=== PATIENT | male | born 1985 | race Caucasian/White ===

== ENCOUNTER 2024-01-13 00:52 | Inpatient (IN) ==
[2024-01-13 01:37] LABS: INR 1.25 (0.83-1.13)
[2024-01-13 01:47] LABS: Hematocrit 31.3 % (38-53); Hemoglobin 10.7 g/dL (13.2-16.3); Mean Corpuscular Hemoglobin 27.3 pg (27-33); Mean Corpuscular Hgb Conc 34.1 g/dL (31-36); Red Blood Count 3.92 10^6/uL (4.06-5.63); Red Cell Distribution Width 14.9 % (12-17); White Blood Count 3.5 10^3/uL (3.6-10.2)
[2024-01-13 01:57] LABS: Calcium 9.5 mg/dL (8.6-10.3); Creatinine, Serum 1.92 mg/dL (0.67-1.17); Globulin 3.9 g/dL (2-4); Potassium 3.5 mmol/L (3.5-5.0); Total Bilirubin 0.6 mg/dL (0.2-1.0); Total Protein 7.9 g/dL (6.4-8.9); eGFR CKD-EPI 45.2 (>60)
[2024-01-13 02:37] LABS: ABS Eosinophils 0.1 10^3/uL (0.0-0.5); ABS Lymphocytes 0.3 10^3/uL (1.0-4.8); ABS Monocytes 0.7 10^3/uL (0.0-1.1); ABS Neutrophils 2.5 10^3/uL (1.5-7.6); Eosinophil % 1.4 %; Lymphocyte % 7.4 %
[2024-01-13 02:38] LABS: Mean Platelet Volume 8.6 fL (7.5-11.2); Platelet Count 179 10^3/uL (150-450); RBC Morphology Normal (Normal)
[2024-01-13] MEDS: Morphine 4 MG/ML VIAL (1 ml) IV ONE ×2 (04:13→06:18)
[2024-01-13] MEDS: Ondansetron 4 mg VIAL 2 MG/ML 2 ml VIAL IV ONE (04:13)
[2024-01-13] MEDS: Lactated Ringers 1000 ml BAG 1,000 ML IV ONE (04:13)
[2024-01-13 04:53] LABS: High Sensitivity Troponin 1 Hr 7 pg/mL (<20)
[2024-01-13] MEDS: Iodixanol (CONTRAST) 320 MG/ML 100 ML SDV IV ONE (05:36)
[2024-01-13 07:25] LABS: Urine Appearance Clear; Urine Bacteria Absent /HPF (Absent); Urine Bilirubin Negative (Negative); Urine Blood Trace (Negative); Urine Color Yellow; Urine Glucose Negative (Negative); Urine Ketones Trace (Negative); Urine Nitrite Negative (Negative); Urine Protein 1+ (>=30 mg/dL) (Negative); Urine Red Blood Cell Absent /HPF (0-Trace); Urine Specific Gravity >1.050 (1.002-1.030); Urine Squamous Epithelial Cell Present /HPF (Absent); Urine Urobilinogen Negative (Negative); Urine White Blood Cell Absent /HPF (0-Trace)
[2024-01-13 07:52] LABS: C Reactive Protein 184.51 mg/L (<8.01)
[2024-01-13] MEDS: Vancomycin 1,250 MG in NS 0.9% 250 ml 250 ML IVPB ONE (07:52)
[2024-01-13] MEDS ORDERED: Vancomycin per Pharmacy 1 EA NOTE FOLLOW UP SCH (08:00)
[2024-01-13] MEDS ORDERED: Piperacillin/Tazobac 3.375 BAG 3.375 GM/100 ML BAG IV SCH ×2 (08:00→11:00)
[2024-01-13] MEDS: NS 0.9% 1000 ml BAG 1,000 ML IV ONE (09:36)
[2024-01-13] MEDS: Pantoprazole VIAL 40 MG VIAL IV SCH (11:56)
[2024-01-13] MEDS: Piperacillin/Tazobac 3.375 BAG 3.375 GM/100 ML BAG IV SCH (11:57)
[2024-01-13] MEDS: Heparin 5000 UNITS/ML 1 mL VIAL SUBCUT SCH (14:37)
[2024-01-13 18:04] LABS: Magnesium 1.3 mg/dL (1.9-2.7)
[2024-01-13] MEDS: Fluconazole 400 MG IVPREMIX 400 MG/200 ML BAG IVPB ONE (19:05)
[2024-01-13] MEDS: Magnesium Sulfate 2 gm BAG 2 GM/50 ML BAG IVPB ONE ×2 (20:12→21:33)
[2024-01-13] MEDS: Potassium Chloride LIQUID 20 MEQ/15 ML LIQUID PO ONE (21:33)
[2024-01-14] MEDS: Fluconazole 200 MG IVPREMIX 200 MG/100 ML BAG IVPB SCH (08:36)
[2024-01-14 11:21] LABS: Hematocrit 26.1 % (38-53); Mean Corpuscular Hemoglobin 27.4 pg (27-33); Mean Corpuscular Hgb Conc 34.5 g/dL (31-36); Mean Corpuscular Volume 79.4 fL (80-97); Mean Platelet Volume 8.3 fL (7.5-11.2); Platelet Count 156 10^3/uL (150-450); Red Blood Count 3.29 10^6/uL (4.06-5.63); Red Cell Distribution Width 14.9 % (12-17)
[2024-01-14 11:49] LABS: Calcium 8.6 mg/dL (8.6-10.3); Creatinine, Serum 1.06 mg/dL (0.67-1.17); Vancomycin Random 2.8 mcg/mL; eGFR CKD-EPI 92.1 (>60)
[2024-01-14 12:06] LABS: ABS Eosinophils 0.2 10^3/uL (0.0-0.5); ABS Lymphocytes 0.2 10^3/uL (1.0-4.8); ABS Monocytes 0.7 10^3/uL (0.0-1.1); Eosinophil % 5.3 %; Hypochromasia 1+; Lymphocyte % 7.2 %; Microcytosis 1+
[2024-01-14] MEDS: Vancomycin Random Level NOTE FOLLOW UP ONE (13:19)
[2024-01-14] MEDS: Vancomycin 1,250 MG in NS 0.9% 250 ml 250 ML IVPB SCH (14:19)
[2024-01-15 08:14] LABS: Hematocrit 27.9 % (38-53); Hemoglobin 9.3 g/dL (13.2-16.3); Mean Corpuscular Hemoglobin 27.5 pg (27-33); Mean Corpuscular Hgb Conc 33.4 g/dL (31-36); Mean Corpuscular Volume 82.4 fL (80-97); Mean Platelet Volume 8.5 fL (7.5-11.2); Platelet Count 153 10^3/uL (150-450); Red Blood Count 3.39 10^6/uL (4.06-5.63); Red Cell Distribution Width 15.5 % (12-17); White Blood Count 2.3 10^3/uL (3.6-10.2)
[2024-01-15 08:29] LABS: ABS Eosinophils 0.4 10^3/uL (0.0-0.5); ABS Lymphocytes 0.3 10^3/uL (1.0-4.8); ABS Monocytes 0.5 10^3/uL (0.0-1.1); ABS Neutrophils 1.2 10^3/uL (1.5-7.6); Anisocytosis 1+; Burr Cells 2+; Eosinophil % 16.1 %; Lymphocyte % 11.7 %; Nucleated Red Blood Cells % 0.1 %/100WBC (0.0-0.8)
[2024-01-15 08:30] LABS: Calcium 8.4 mg/dL (8.6-10.3); Globulin 3.1 g/dL (2-4); Potassium 4.2 mmol/L (3.5-5.0); Total Bilirubin 0.5 mg/dL (0.2-1.0); Total Protein 6.1 g/dL (6.4-8.9); eGFR CKD-EPI 98.8 (>60)
[2024-01-16 06:43] LABS: Hematocrit 27.3 % (38-53); Hemoglobin 9.5 g/dL (13.2-16.3); Mean Corpuscular Hemoglobin 27.5 pg (27-33); Mean Corpuscular Hgb Conc 34.8 g/dL (31-36); Mean Corpuscular Volume 79.1 fL (80-97); Mean Platelet Volume 8.4 fL (7.5-11.2); Platelet Count 200 10^3/uL (150-450); Red Blood Count 3.46 10^6/uL (4.06-5.63); White Blood Count 2.4 10^3/uL (3.6-10.2)
[2024-01-16 08:14] LABS: ABS Eosinophils 0.6 10^3/uL (0.0-0.5); ABS Lymphocytes 0.4 10^3/uL (1.0-4.8); ABS Monocytes 0.5 10^3/uL (0.0-1.1); ABS Neutrophils 0.9 10^3/uL (1.5-7.6); Acanthocytes 1+; Anisocytosis 1+; Microcytosis 1+; Nucleated Red Blood Cells % 0.1 %/100WBC (0.0-0.8); Tear Drop Cells 1+
[2024-01-16 09:19] LABS: Calcium 8.3 mg/dL (8.6-10.3); Creatinine, Serum 1.03 mg/dL (0.67-1.17); Magnesium 1.6 mg/dL (1.9-2.7); Potassium 3.9 mmol/L (3.5-5.0); eGFR CKD-EPI 95.4 (>60)
[2024-01-16 14:47] LABS: Creatinine, Serum 0.97 mg/dL (0.67-1.17); Vancomycin Trough 11.9 mcg/mL; eGFR CKD-EPI 102.5 (>60)
[2024-01-16] MEDS: Vancomycin Trough Check NOTE FOLLOW UP ONE (15:03)
[2024-01-16] MEDS: cefTRIAXone 1 gm/50 mL D5W 1 GM/50 ML BAG IV SCH (19:55)
[2024-01-16] MEDS: Al Hydrox/Mg Hydrox/Simet LIQ 30 ML UDC PO PRN (21:18)
[2024-01-16 23:16] LABS: High Sensitivity Troponin 1 Hr 9 pg/mL (<20)
[2024-01-17 10:16] LABS: Hematocrit 30.3 % (38-53); Hemoglobin 9.9 g/dL (13.2-16.3); Mean Corpuscular Hemoglobin 26.5 pg (27-33); Mean Corpuscular Hgb Conc 32.8 g/dL (31-36); Mean Corpuscular Volume 80.8 fL (80-97); Mean Platelet Volume 8.1 fL (7.5-11.2); Platelet Count 226 10^3/uL (150-450); Red Blood Count 3.74 10^6/uL (4.06-5.63); Red Cell Distribution Width 15.2 % (12-17); White Blood Count 2.2 10^3/uL (3.6-10.2)
[2024-01-17 10:59] LABS: Albumin 3.2 g/dL (3.2-5.2); Calcium 8.6 mg/dL (8.6-10.3); Creatinine, Serum 0.86 mg/dL (0.67-1.17); Globulin 3.2 g/dL (2-4); Magnesium 1.5 mg/dL (1.9-2.7); Potassium 4.3 mmol/L (3.5-5.0); Total Bilirubin 0.4 mg/dL (0.2-1.0); Total Protein 6.4 g/dL (6.4-8.9); eGFR CKD-EPI 113.7 (>60)
[2024-01-17 11:21] LABS: ABS Eosinophils 0.4 10^3/uL (0.0-0.5); ABS Lymphocytes 0.3 10^3/uL (1.0-4.8); ABS Monocytes 0.4 10^3/uL (0.0-1.1); Eosinophil % 19.7 %; Lymphocyte % 15.2 %; Nucleated Red Blood Cells % 0.2 %/100WBC (0.0-0.8)
[2024-01-17 18:02] VITALS: BP 142/85
[2024-01-19] MEDS ORDERED: Vancomycin Trough Check NOTE FOLLOW UP ONE (13:00)
[2024-01-20 10:37] LABS: HSV 1,PCR Negative (Negative); HSV 2, PCR Negative (Negative); Specimen Source left groin skin
== END 2024-01-17 18:45 | disposition home or self-care (01) | DRG 720 ==
LOC: ED 00:52 → SUATTDRO 07:50 → EDHOLD 07:50 → MED 10:17
PROVIDERS: ADMIT Internal Medicine; ATTEND Internal Medicine

== ENCOUNTER 2024-03-09 12:03 | Inpatient (IN) ==
[2024-03-09] MEDS: Morphine 4 MG/ML VIAL (1 ml) IV ONE (15:44)
[2024-03-09 15:58] LABS: Hematocrit 24.8 % (38-53); Hemoglobin 8.3 g/dL (13.2-16.3); Mean Corpuscular Hgb Conc 33.5 g/dL (31-36); Mean Corpuscular Volume 83.6 fL (80-97); Mean Platelet Volume 7.3 fL (7.5-11.2); Platelet Count 324 10^3/uL (150-450); Red Blood Count 2.97 10^6/uL (4.06-5.63); Red Cell Distribution Width 18.9 % (12-17); White Blood Count 3.1 10^3/uL (3.6-10.2)
[2024-03-09 16:27] LABS: ABS Eosinophils 0.1 10^3/uL (0.0-0.5); ABS Lymphocytes 0.6 10^3/uL (1.0-4.8); ABS Monocytes 0.6 10^3/uL (0.0-1.1); ABS Neutrophils 1.8 10^3/uL (1.5-7.6); Eosinophil % 2.7 %; Lymphocyte % 19.3 %; Nucleated Red Blood Cells % 0.1 %/100WBC (0.0-0.8)
[2024-03-09 16:35] LABS: Albumin 4.3 g/dL (3.2-5.2); Albumin/Globulin Ratio 1.2 (1-3); C Reactive Protein 14.94 mg/L (<8.01); Calcium 9.9 mg/dL (8.6-10.3); Creatinine, Serum 1.17 mg/dL (0.67-1.17); Globulin 3.5 g/dL (2-4); Potassium 3.8 mmol/L (3.5-5.0); Total Bilirubin 0.4 mg/dL (0.2-1.0); Total Protein 7.8 g/dL (6.4-8.9); eGFR CKD-EPI 81.3 (>60)
[2024-03-09] MEDS: HYDROmorphone 1 MG/1 ML SYRINGE IV ONE (16:40)
[2024-03-09] MEDS: Iohexol 300 (CONTRAST) 10 ML SDV IV ONE (17:17)
[2024-03-09] MEDS: Acetaminophen IV 1 GM/100ML 1,000 MG/100 ML BAG IV ONE (19:28)
[2024-03-09] MEDS: Piperacillin/Tazobac 3.375 BAG 3.375 GM/100 ML BAG IV ONE (19:59)
[2024-03-09] MEDS: Gadoteridol (CONTRAST) 279.3 MG/ML 10 ML IV ONE (21:54)
[2024-03-09] MEDS: HYDROmorphone 1 MG/1 ML SYRINGE IV SLOW PU ONE (22:17)
[2024-03-09] MEDS ORDERED: Senna TAB 8.6 mg TAB PO PRN (22:34)
[2024-03-09] MEDS ORDERED: Polyethylene Glycol 3350 17 GM PACKET PO PRN (22:34)
[2024-03-09] MEDS ORDERED: Vancomycin per Pharmacy 1 EA NOTE FOLLOW UP PRN (22:46)
[2024-03-10] MEDS: Vancomycin 1,250 MG in NS 0.9% 250 ml 250 ML IVPB ONE (00:08)
[2024-03-10] MEDS: HYDROmorphone 0.5 MG/0.5 ML SYRINGE IV SLOW PU PRN (02:02)
[2024-03-10 06:03] LABS: ABS Eosinophils 0.1 10^3/uL (0.0-0.5); ABS Lymphocytes 0.6 10^3/uL (1.0-4.8); ABS Monocytes 0.5 10^3/uL (0.0-1.1); ABS Neutrophils 1.7 10^3/uL (1.5-7.6); Eosinophil % 4.3 %; Hematocrit 24.2 % (38-53); Hemoglobin 8.1 g/dL (13.2-16.3); Mean Corpuscular Hemoglobin 27.7 pg (27-33); Mean Corpuscular Hgb Conc 33.6 g/dL (31-36); Mean Corpuscular Volume 82.4 fL (80-97); Mean Platelet Volume 6.9 fL (7.5-11.2); Platelet Count 304 10^3/uL (150-450); Red Blood Count 2.93 10^6/uL (4.06-5.63); Red Cell Distribution Width 18.9 % (12-17)
[2024-03-10 06:18] LABS: Albumin 3.9 g/dL (3.2-5.2); Albumin/Globulin Ratio 1.2 (1-3); Calcium 9.1 mg/dL (8.6-10.3); Creatinine, Serum 1.09 mg/dL (0.67-1.17); Globulin 3.3 g/dL (2-4); Potassium 3.8 mmol/L (3.5-5.0); Total Bilirubin 0.4 mg/dL (0.2-1.0); Total Protein 7.2 g/dL (6.4-8.9); eGFR CKD-EPI 88.5 (>60)
[2024-03-10] MEDS ORDERED: Hemorrhoidal OINT 1 TUBE PR PRN (09:10)
[2024-03-10] MEDS: NF:Bictegravir/Emtricit/Tenofov 1 TABLET PO SCH (09:42)
[2024-03-10] MEDS: Vancomycin 1,250 MG in NS 0.9% 250 ml 250 ML IVPB SCH (10:35)
[2024-03-10] MEDS: Lidocaine 4% GEL 10 GM TUBE TOPICAL SCH (12:46)
[2024-03-11] MEDS ORDERED: Naloxone 0.4 mg VIAL 0.4 mg/ml 1 ml VIAL IV PRN (07:49)
[2024-03-11] MEDS ORDERED: Ondansetron 4 mg VIAL 2 MG/ML 2 ml VIAL IV PRN (07:49)
[2024-03-11] MEDS ORDERED: Methylene Blue 1% (ANTIDOTE) 10 MG/ML 10 ML SDV VIAL IVPB ONE (08:02)
[2024-03-11] MEDS ORDERED: Thrombin 5,000 UNITS 1 APPLIC KIT - topical use - TOPICAL ONE (08:04)
[2024-03-11] MEDS ORDERED: fentaNYL 100 mcg/2 ml 50 MCG/ML VIAL ONE ×2 (08:44→10:34)
[2024-03-11] MEDS ORDERED: Propofol 10 MG/ML 20 ML BTL ONE (08:44)
[2024-03-11] MEDS ORDERED: Lidocaine 2% PF 5 ML VIAL ONE (08:44)
[2024-03-11] MEDS ORDERED: Midazolam 2 mg/2 ml VIAL 1 mg/ml 2 ml VIAL (2 mg) ONE (08:44)
[2024-03-11] MEDS ORDERED: Dexamethasone IV 4 MG/ML VIAL 1 ml VIAL ONE (08:46)
[2024-03-11] MEDS ORDERED: Ondansetron 4 mg VIAL 2 MG/ML 2 ml VIAL ONE (08:46)
[2024-03-11 09:02] LABS: ABS Eosinophils 0.1 10^3/uL (0.0-0.5); ABS Lymphocytes 0.6 10^3/uL (1.0-4.8); ABS Monocytes 0.5 10^3/uL (0.0-1.1); ABS Neutrophils 1.5 10^3/uL (1.5-7.6); ABS Nucleated RBC 0.01 10^3/ul; Eosinophil % 4.7 %; Hematocrit 24.9 % (38-53); Hemoglobin 8.4 g/dL (13.2-16.3); Lymphocyte % 22.3 %; Mean Corpuscular Hemoglobin 27.9 pg (27-33); Mean Corpuscular Hgb Conc 33.9 g/dL (31-36); Mean Corpuscular Volume 82.4 fL (80-97); Mean Platelet Volume 6.8 fL (7.5-11.2); Nucleated Red Blood Cells % 0.3 %/100WBC (0.0-0.8); Platelet Count 301 10^3/uL (150-450); Red Blood Count 3.02 10^6/uL (4.06-5.63); Red Cell Distribution Width 18.3 % (12-17); White Blood Count 2.7 10^3/uL (3.6-10.2)
[2024-03-11 09:38] LABS: Calcium 8.9 mg/dL (8.6-10.3); Creatinine, Serum 0.94 mg/dL (0.67-1.17); Potassium 3.5 mmol/L (3.5-5.0); Vancomycin Trough 13.4 mcg/mL; eGFR CKD-EPI 105.8 (>60)
[2024-03-11] MEDS: fentaNYL 100 mcg/2 ml 50 MCG/ML VIAL IV PRN (10:35)
[2024-03-11] MEDS: Vancomycin Trough Check NOTE FOLLOW UP ONE (11:13)
[2024-03-11] MEDS: Buffered Lidocaine 1% SYRIN 1 ml INTRADERM ONE (11:52)
[2024-03-11] MEDS: Lactated Ringers 1000 ml BAG 1,000 ML IV SCH (11:52)
[2024-03-11] MEDS: Morphine 2 MG/ML SYRINGE IV PRN (16:11)
[2024-03-12 06:00] LABS: Hematocrit 25.3 % (38-53); Hemoglobin 8.5 g/dL (13.2-16.3); Mean Corpuscular Hemoglobin 27.4 pg (27-33); Mean Corpuscular Hgb Conc 33.4 g/dL (31-36); Mean Platelet Volume 7.3 fL (7.5-11.2); Platelet Count 313 10^3/uL (150-450); Red Blood Count 3.09 10^6/uL (4.06-5.63); Red Cell Distribution Width 18.7 % (12-17); White Blood Count 3.3 10^3/uL (3.6-10.2)
[2024-03-12 06:16] LABS: Calcium 9.4 mg/dL (8.6-10.3); Creatinine, Serum 0.98 mg/dL (0.67-1.17); Magnesium 1.4 mg/dL (1.9-2.7); Potassium 3.7 mmol/L (3.5-5.0); eGFR CKD-EPI 100.6 (>60)
[2024-03-12 07:34] LABS: ABS Eosinophils 0.1 10^3/uL (0.0-0.5); ABS Lymphocytes 0.7 10^3/uL (1.0-4.8); ABS Monocytes 0.5 10^3/uL (0.0-1.1); Eosinophil % 2.3 %; Lymphocyte % 20.7 %
[2024-03-12] MEDS: Magnesium Sulfate 2 gm BAG 2 GM/50 ML BAG IVPB ONE (08:56)
[2024-03-12 09:40] VITALS: BP 134/85
[2024-03-14] MEDS ORDERED: Vancomycin Trough Check NOTE FOLLOW UP ONE (08:30)
== END 2024-03-12 14:33 | disposition home or self-care (01) | DRG 254 ==
LOC: ED 12:03 → SUATTDRO 20:00 → EDHOLD 20:00 → SSU 21:48
PROVIDERS: ADMIT Hospitalist; ATTEND Internal Medicine